=== PATIENT | male | born 1970 ===

== ENCOUNTER 2018-09-01 18:00 | Outpatient (CLI) | payer BC | END 2018-09-01 18:01 | disposition home or self-care (01) | LOC: SLEEPLAB 18:00 | PROVIDERS: ATTEND Family Medicine | DX: G47.33 Obstructive sleep apnea (adult) (pediatric) (principal); I10 Essential (primary) hypertension; F41.9 Anxiety disorder, unspecified; R06.83 Snoring; R53.83 Other fatigue | CPT/HCPCS: 95806 ==